=== PATIENT | female | born 1945 | race Caucasian/White ===

== ENCOUNTER 2016-09-23 06:26 | Inpatient (IN) | payer MEDICARE, OTHER ==
[~2016-09-23] VITALS: Ht 154.9 cm; Wt 38.6 kg
[2016-09-23] MEDS ORDERED: CILOSTAZOL50 MG PO (12:03)
[2016-09-23] MEDS ORDERED: TENORMIN 25 MG25 MG PO (12:04)
[2016-09-23] MEDS ORDERED: ACCUPRIL TAB 5MG5 MG PO (12:04)
[2016-09-23] MEDS ORDERED: CRESTOR20 MG PO (12:05)
[2016-09-23] MEDS ORDERED: TUDORZA PRESS400 MCG INH (12:08)
[2016-09-23] MEDS ORDERED: PROAIR HFA8.5 GM INH (12:08)
[2016-09-23] MEDS ORDERED: SYMBICORT 16010.2 GM INH (12:09)
[2016-09-23] MEDS ORDERED: VENTOLIN/PROVE0.5 ML INH (12:10)
[2016-09-23] MEDS ORDERED: ASPIR-LOW81 MG PO (12:11)
[2016-09-23] MEDS ORDERED: PREDNISONE 10 M10 MG PO ×2 (12:12→12:13)
[2016-09-23] MEDS ORDERED: MILLIPRED5 MG PO (12:14)
[2016-09-23] MEDS ORDERED: DOXYCYCLINE MO100 M1 PO (12:15)
[2016-09-23 15:20] LABS: BUN/CREATININE RATIO 26 (0-10)
[2016-09-24 03:34] LABS: RED BLOOD COUNT 3.99 M/UL (4.00-5.10)
[2016-09-24 03:45] LABS: BUN/CREATININE RATIO 42 (0-10)
[2016-09-25 04:03] LABS: RED BLOOD COUNT 3.85 M/UL (4.00-5.10); WHITE BLOOD COUNT 9.8 K/UL (4.5-11.0)
[2016-09-25 04:17] LABS: BUN/CREATININE RATIO 70 (0-10)
[2016-09-26 05:02] LABS: HEMOGLOBIN 11.7 gm/dl (12.3-15.3); RED BLOOD COUNT 3.92 M/UL (4.00-5.10)
[2016-09-26 05:05] LABS: WHITE BLOOD COUNT 6.8 K/UL (4.5-11.0)
[2016-09-26 05:20] LABS: BUN/CREATININE RATIO 54 (0-10)
[2016-09-26] MEDS ORDERED: LOPRESSOR 50 MG50 MG PO (12:30)
[2016-09-26] MEDS ORDERED: PREDNISONE 10 M10 MG PO (12:34)
[2016-09-26] MEDS ORDERED: PROTONIX40 MG PO (12:37)
[2016-09-26] MEDS ORDERED: ATROVENT INH S2.5 ML INH (12:43)
[2016-09-26] MEDS ORDERED: CEFTIN250 MG/5 M PO (12:50)
[2016-09-26] MEDS ORDERED: PRECOSE 50 MG T50 MG PO (12:53)
[2016-09-26] MEDS ORDERED: BREO ELLIPTA 11 EACH INH (12:53)
[2016-09-26] MEDS ORDERED: SYMBICORT 16010.2 GM INH (13:11)
--- NOTE | 2016-09-26 14:49 | NUR ---
PATIENT DISCHARGED HOME WITH DISCHARGED INSTRUCTIONS AND FOLLOW UP INSTRUCTIONS
[2016-10-27] MEDS ORDERED: LEVAQUIN TAB 5500 MG PO (16:10)
== END 2016-09-26 14:37 | disposition home or self-care (01) | DRG 189 ==
LOC: PROG CARE 11:34
PROVIDERS: Physician Assistant; ADMIT Internal Medicine
DX: J96.22 Acute and chronic respiratory failure with hypercapnia (principal); J44.0 Chronic obstructive pulmonary disease with (acute) lower respiratory infection; J44.1 Chronic obstructive pulmonary disease with (acute) exacerbation; I47.1 Supraventricular tachycardia; J20.9 Acute bronchitis, unspecified; I10 Essential (primary) hypertension; E78.5 Hyperlipidemia, unspecified; F17.210 Nicotine dependence, cigarettes, uncomplicated; E87.6 Hypokalemia; Z95.0 Presence of cardiac pacemaker; Z82.49 Family history of ischemic heart disease and other diseases of the circulatory system; Z91.14 Patient's other noncompliance with medication regimen; Z79.82 Long term (current) use of aspirin; Z79.52 Long term (current) use of systemic steroids; Z79.899 Other long term (current) drug therapy
CPT/HCPCS: 36415; 36600; 71010; 80048; 80053; 82550; 82553; 82803; 83735; 84439; 84443; 84484; 85025; 85027; 85610; 93005; 94640; 94660; J0696; J2930; J7040

== ENCOUNTER → 2016-10-24 | Outpatient (CLI) | payer MEDICARE, OTHER ==
[~2016-10-24] MED LIST: ACCUPRIL TAB 5MG5 MG PO; ASPIR-LOW81 MG PO; ATROVENT INH S2.5 ML INH; BREO ELLIPTA 11 EACH INH; CEFTIN250 MG/5 M PO; CILOSTAZOL50 MG PO; CRESTOR20 MG PO; DOXYCYCLINE MO100 M1 PO; LEVAQUIN TAB 5500 MG PO; LOPRESSOR 50 MG50 MG PO; MILLIPRED5 MG PO; PRECOSE 50 MG T50 MG PO; PREDNISONE 10 M10 MG PO; PROAIR HFA8.5 GM INH; PROTONIX40 MG PO; SYMBICORT 16010.2 GM INH; TENORMIN 25 MG25 MG PO; TUDORZA PRESS400 MCG INH; VENTOLIN/PROVE0.5 ML INH
[2016-10-24 15:58] LABS: HEMOGLOBIN 12.7 gm/dl (12.3-15.3); RED BLOOD COUNT 4.12 M/UL (4.00-5.10); WHITE BLOOD COUNT 6.5 K/UL (4.5-11.0)
[2016-10-24 16:05] LABS: BUN/CREATININE RATIO 18 (0-10)
== END ==
LOC: LAB 15:26
PROVIDERS: Internal Medicine Interventional Cardiology
DX: Z45.010 Encounter for checking and testing of cardiac pacemaker pulse generator [battery] (principal)
CPT/HCPCS: 36415; 80048; 85025; 85610; 85730

== ENCOUNTER → 2016-10-27 | Outpatient (CLI) | payer MEDICARE, OTHER ==
[~2016-10-27] VITALS: Ht 154.9 cm; Wt 42.6 kg
== END | disposition home or self-care (01) ==
LOC: CATH 12:58
DX: Z45.010 Encounter for checking and testing of cardiac pacemaker pulse generator [battery] (principal); I49.5 Sick sinus syndrome; I10 Essential (primary) hypertension; E78.5 Hyperlipidemia, unspecified; J44.9 Chronic obstructive pulmonary disease, unspecified; I73.9 Peripheral vascular disease, unspecified; R05 Cough; R06.02 Shortness of breath; R00.2 Palpitations; Z79.82 Long term (current) use of aspirin; Z79.899 Other long term (current) drug therapy
CPT/HCPCS: C1785; J1644; J2250; J3370; J7040; J7050; J7070